=== PATIENT | male | born 2000 | race Caucasian/White ===

== ENCOUNTER 2020-02-10 15:59 | Inpatient (IN) ==
[2020-02-10 18:58] LABS: Basophils % 0.3 % (0.0-0.8); Eosinophils # 0.1 10*3/uL (0.0-0.87); Eosinophils % 0.8 % (0.00-10.9); Hematocrit 38.4 VOL% (42.0-52.0); Hemoglobin 12.5 GM/DL (14.0-18.0); Immature Granulocytes % 0.3 %; Immature Granulocytes Absolute 0.04 #; Lymphocytes % 8.1 % (21.2-54.2); Mean Corpuscular HGB Conc 32.6 GM/DL (32-36); Mean Corpuscular Volume 87.7 FL (87-102); Mean Platelet Volume 10.6 FL (9.6-12.0); Monocytes % 12.1 % (1.7-12.7); Neutrophils % 78.4 % (38.7-73.9); Platelet Count 194 T/CUMM (130-400); Red Blood Count 4.38 MC/CUMM (3.8-5.5); Red Cell Distribution Width 14.5 % (9.3-17.3); White Blood Count 11.9 T/CUMM (4-12)
[2020-02-10 19:19] LABS: Albumin 3.1 G/DL (3.4-5.0); Bilirubin,Total 0.7 MG/DL (0.2-1.0); Calcium 8.8 MG/DL (8.5-10.1); Osmolality,Calculated 274.5 MOS/KG (273-304)
[2020-02-10] MEDS: GABAPENTIN 100 MG CAPSULE PO SCH (21:19)
[2020-02-10] MEDS: SERTRALINE 50 MG TABLET PO SCH (21:19)
[2020-02-10] MEDS: CLINDAMYCIN INJ 600 MG in PREMIX 1 EACH IV SCH (21:23)
[2020-02-10] MEDS ORDERED: DEXTROSE 10% 250 ML BAG IV PRN (21:35)
[2020-02-10] MEDS ORDERED: GLUCAGON 1 MG VIAL IM PRN (21:35)
[2020-02-10] MEDS ORDERED: MORPHINE 10 MG/5 ML UDCUP PO PRN (21:40)
[2020-02-10] MEDS: DEXTROSE 5% NACL 0.45% 1,000 ML IV SCH (23:30)
[2020-02-10] MEDS: HYDROmorphone 2 MG/1 ML VIAL IV PRN (23:30)
[2020-02-11] MEDS: VANCOMYCIN INJ 1,000 MG in SODIUM CHLORIDE 0.9% 250 ML IV SCH ×3 (00:04→22:47)
[2020-02-11] MEDS: CLINDAMYCIN INJ 600 MG in PREMIX 1 EACH IV SCH ×3 (04:11→19:43)
[2020-02-11 07:43] LABS: Basophils % 0.2 % (0.0-0.8); Eosinophils # 0.1 10*3/uL (0.0-0.87); Eosinophils % 0.6 % (0.00-10.9); Hematocrit 39.4 VOL% (42.0-52.0); Hemoglobin 12.7 GM/DL (14.0-18.0); Immature Granulocytes % 0.5 %; Immature Granulocytes Absolute 0.06 #; Lymphocytes % 7.9 % (21.2-54.2); Mean Corpuscular HGB Conc 32.2 GM/DL (32-36); Mean Corpuscular Volume 87.8 FL (87-102); Monocytes % 11.6 % (1.7-12.7); Neutrophils % 79.2 % (38.7-73.9); Platelet Count 233 T/CUMM (130-400); Red Blood Count 4.49 MC/CUMM (3.8-5.5); Red Cell Distribution Width 14.7 % (9.3-17.3); White Blood Count 12.7 T/CUMM (4-12)
[2020-02-11 08:36] LABS: Calcium 8.8 MG/DL (8.5-10.1)
[2020-02-11 08:37] LABS: Osmolality,Calculated 271.7 MOS/KG (273-304)
[2020-02-11] MEDS: GABAPENTIN 100 MG CAPSULE PO SCH ×2 (09:29→20:14)
[2020-02-11] MEDS: DEXTROSE 5% NACL 0.45% 1,000 ML IV SCH ×2 (09:35→17:53)
[2020-02-11] MEDS: HYDROmorphone 2 MG/1 ML VIAL IV PRN (12:00)
[2020-02-11] MEDS: CHLORHEXIDINE 0.12% ORAL RINSE 60 ML BOTTLE SWISH/SPIT SCH ×2 (14:43→22:48)
[2020-02-11] MEDS ORDERED: CHLORHEXIDINE 0.12% ORAL RINSE 60 ML BOTTLE SWISH/SPIT ONE (14:59)
[2020-02-11] MEDS ORDERED: LIDOCAINE 1%/EPI INJ 20 ML VIAL ONE (14:59)
[2020-02-11 17:01] LABS: Apearance,Urine Slightly Hazy (Clear); Bacteria,Urine Occasional /HPF (Few); Bilirubin,Urine Negative (Negative); Blood, Urine Negative (Negative); Glucose,Urine (UA) Negative (Negative); Ketones,Urine 80 mg/dL (Negative); Mucus,Urine Occasional /LPF (Occasional); Nitrite,Urine Negative (Negative); Protein,Urine 30 MG/DL; RBC,Urine 4 /HPF (0-4); Urine Color Amber (Yellow); Urine Specific Gravity 1.024 (1.001-1.035); WBC,Urine 1 /HPF (0-6)
[2020-02-11] MEDS ORDERED: propofoL 200 MG/20 ML VIAL IV ONE (17:27)
[2020-02-11] MEDS ORDERED: LIDOCAINE 2% 5 ML VIAL ONE (17:27)
[2020-02-11] MEDS ORDERED: SEVOFLURANE 1 UNIT/15 MINUTE INH ONE (17:27)
[2020-02-11] MEDS ORDERED: MIDAZOLAM 2 MG/2 ML VIAL ONE (17:28)
[2020-02-11] MEDS ORDERED: MIDAZOLAM 10 MG/2 ML VIAL ONE (17:28)
[2020-02-11] MEDS ORDERED: fentaNYL 100 MCG/2 ML VIAL ONE (17:28)
[2020-02-11] MEDS ORDERED: fentaNYL 250 MCG/5 ML VIAL ONE (17:28)
[2020-02-11] MEDS ORDERED: ROCURONIUM 100 MG/10 ML VIAL IV ONE (17:29)
[2020-02-11] MEDS ORDERED: DEXAMETHASONE 4 MG/1 ML VIAL ONE (17:29)
[2020-02-11] MEDS ORDERED: LACTATED RINGERS 1,000 ML IV ONE (17:29)
[2020-02-11] MEDS ORDERED: PHENYLEPHRINE 1 MG/10 ML SYRINGE IV ONE (17:29)
[2020-02-11] MEDS ORDERED: ONDANSETRON 4 MG/2 ML VIAL ONE (17:29)
[2020-02-11 17:47] LABS: ABG Base Excess 2.6 MMOL/L (-2.5-2.5); ABG HCO3 26.7 MMOL/L (20-26); ABG Oxygen Saturation 99.9 % (95-100); ABG PCO2 32.7 MM HG (35-48); ABG PH 7.497 (7.35-7.45); ABG TCO2 22.2 MMOL/L (23-27); Allen Test Positive; Pt O2 Delivery Device Ventilator
[2020-02-11] MEDS ORDERED: fentaNYL INJ 1,250 MCG in SODIUM CHLORIDE 0.9% 225 ML IV PRN (19:00)
[2020-02-11] MEDS: SERTRALINE 50 MG TABLET PO SCH (20:14)
[2020-02-12] MEDS: DEXTROSE 5% NACL 0.45% 1,000 ML IV SCH ×2 (03:58→15:33)
[2020-02-12 04:33] LABS: ABG Base Excess 3.4 MMOL/L (-2.5-2.5); ABG HCO3 27.5 MMOL/L (20-26); ABG Oxygen Saturation 99.4 % (95-100); ABG PCO2 47.5 MM HG (35-48); ABG PH 7.396 (7.35-7.45); ABG TCO2 25.5 MMOL/L (23-27)
[2020-02-12] MEDS: CLINDAMYCIN INJ 600 MG in PREMIX 1 EACH IV SCH ×3 (05:16→22:32)
[2020-02-12 06:27] LABS: Basophils % 0.2 % (0.0-0.8); Hematocrit 37.1 VOL% (42.0-52.0); Hemoglobin 12.1 GM/DL (14.0-18.0); Immature Granulocytes % 0.4 %; Immature Granulocytes Absolute 0.05 #; Lymphocytes # 0.7 10*3/uL (1.4-4.0); Lymphocytes % 5.4 % (21.2-54.2); Mean Corpuscular HGB Conc 32.6 GM/DL (32-36); Mean Corpuscular Volume 86.9 FL (87-102); Mean Platelet Volume 10.6 FL (9.6-12.0); Monocytes % 6.1 % (1.7-12.7); Neutrophils % 87.9 % (38.7-73.9); Platelet Count 280 T/CUMM (130-400); Red Blood Count 4.27 MC/CUMM (3.8-5.5); White Blood Count 12.7 T/CUMM (4-12)
[2020-02-12] MEDS: HYDROmorphone 2 MG/1 ML VIAL IV PRN ×3 (07:43→22:53)
[2020-02-12] MEDS: CHLORHEXIDINE 0.12% ORAL RINSE 60 ML BOTTLE SWISH/SPIT SCH ×2 (08:50→22:32)
[2020-02-12] MEDS ORDERED: DEXAMETHASONE 10 MG/1 ML VIAL IV ONE (08:51)
[2020-02-12] MEDS: VANCOMYCIN INJ 1,000 MG in SODIUM CHLORIDE 0.9% 250 ML IV SCH ×2 (10:25→23:30)
[2020-02-12] MEDS: GABAPENTIN 100 MG CAPSULE PO SCH ×2 (12:01→22:32)
[2020-02-12] MEDS ORDERED: hydrOXYzine HCL 2 MG/ML 30 ML/BOTTLE PO ONE (17:13)
[2020-02-12] MEDS: SERTRALINE 50 MG TABLET PO SCH (22:32)
[2020-02-13] MEDS: DEXTROSE 5% NACL 0.45% 1,000 ML IV SCH ×2 (01:33→10:13)
[2020-02-13] MEDS: CLINDAMYCIN INJ 600 MG in PREMIX 1 EACH IV SCH ×3 (04:08→19:50)
[2020-02-13] MEDS: HYDROmorphone 2 MG/1 ML VIAL IV PRN ×3 (06:31→17:09)
[2020-02-13] MEDS: VANCOMYCIN INJ 1,500 MG in SODIUM CHLORIDE 0.9% 500 ML IV SCH ×2 (08:43→19:53)
[2020-02-13] MEDS: GABAPENTIN 100 MG CAPSULE PO SCH ×2 (08:44→20:56)
[2020-02-13] MEDS: CHLORHEXIDINE 0.12% ORAL RINSE 60 ML BOTTLE SWISH/SPIT SCH ×2 (08:44→20:57)
[2020-02-13 09:00] LABS: Basophils % 0.3 % (0.0-0.8); Eosinophils % 0.1 % (0.00-10.9); Hematocrit 38.7 VOL% (42.0-52.0); Hemoglobin 12.5 GM/DL (14.0-18.0); Immature Granulocytes % 0.6 %; Immature Granulocytes Absolute 0.09 #; Lymphocytes # 2.2 10*3/uL (1.4-4.0); Lymphocytes % 15.3 % (21.2-54.2); Mean Corpuscular HGB Conc 32.3 GM/DL (32-36); Mean Corpuscular Volume 86.8 FL (87-102); Mean Platelet Volume 9.9 FL (9.6-12.0); Monocytes % 8.6 % (1.7-12.7); Neutrophils % 75.1 % (38.7-73.9); Platelet Count 328 T/CUMM (130-400); Red Blood Count 4.46 MC/CUMM (3.8-5.5); Red Cell Distribution Width 15.1 % (9.3-17.3); White Blood Count 14.4 T/CUMM (4-12)
[2020-02-13 09:29] LABS: Calcium 8.4 MG/DL (8.5-10.1); Osmolality,Calculated 279.3 MOS/KG (273-304)
[2020-02-13 09:58] LABS: Band Neutrophils 5 % (0-10); Lymphocytes 20 % (20-55); Platelet Estimate Normal; Segmented Neutrophils 67 % (50-85); Total Cells Counted 100
[2020-02-13] MEDS ORDERED: DEXAMETHASONE 10 MG/1 ML VIAL IV ONE (11:01)
[2020-02-13] MEDS: DEXT 5% NACL 0.45% KCL 20 MEQ 20 MEQ/1,000 ML BAG IV SCH ×3 (11:59→19:54)
[2020-02-13] MEDS: SERTRALINE 50 MG TABLET PO SCH (20:56)
[2020-02-13] MEDS: HYDROcod/ACETAMIN 7.5-325 MG/15 ML UDCUP PO PRN (21:22)
[2020-02-14 03:30] LABS: Basophils % 0.3 % (0.0-0.8); Eosinophils % 0.1 % (0.00-10.9); Hematocrit 37.5 VOL% (42.0-52.0); Hemoglobin 12.4 GM/DL (14.0-18.0); Immature Granulocytes % 0.9 %; Immature Granulocytes Absolute 0.11 #; Lymphocytes # 1.9 10*3/uL (1.4-4.0); Lymphocytes % 16.3 % (21.2-54.2); Mean Corpuscular HGB Conc 33.1 GM/DL (32-36); Mean Corpuscular Volume 85.2 FL (87-102); Mean Platelet Volume 10.1 FL (9.6-12.0); Neutrophils % 72.4 % (38.7-73.9); Platelet Count 353 T/CUMM (130-400); Red Cell Distribution Width 14.9 % (9.3-17.3); White Blood Count 11.7 T/CUMM (4-12)
[2020-02-14 03:43] LABS: Calcium 8.1 MG/DL (8.5-10.1); Osmolality,Calculated 276.4 MOS/KG (273-304)
[2020-02-14] MEDS: HYDROcod/ACETAMIN 7.5-325 MG/15 ML UDCUP PO PRN ×4 (04:12→22:27)
[2020-02-14] MEDS: DEXT 5% NACL 0.45% KCL 20 MEQ 20 MEQ/1,000 ML BAG IV SCH ×3 (04:17→20:07)
[2020-02-14] MEDS: CLINDAMYCIN INJ 600 MG in PREMIX 1 EACH IV SCH ×3 (04:18→20:01)
[2020-02-14] MEDS: GABAPENTIN 100 MG CAPSULE PO SCH ×2 (08:18→20:15)
[2020-02-14] MEDS: VANCOMYCIN INJ 1,500 MG in SODIUM CHLORIDE 0.9% 500 ML IV SCH ×2 (08:20→19:59)
[2020-02-14] MEDS: CHLORHEXIDINE 0.12% ORAL RINSE 60 ML BOTTLE SWISH/SPIT SCH ×2 (09:06→20:16)
[2020-02-14] MEDS: SERTRALINE 50 MG TABLET PO SCH (20:16)
[2020-02-15] MEDS: HYDROcod/ACETAMIN 7.5-325 MG/15 ML UDCUP PO PRN ×3 (03:58→23:02)
[2020-02-15] MEDS: CLINDAMYCIN INJ 600 MG in PREMIX 1 EACH IV SCH ×3 (05:09→23:24)
[2020-02-15] MEDS: VANCOMYCIN INJ 1,500 MG in SODIUM CHLORIDE 0.9% 500 ML IV SCH ×3 (05:10→23:53)
[2020-02-15] MEDS: DEXT 5% NACL 0.45% KCL 20 MEQ 20 MEQ/1,000 ML BAG IV SCH ×2 (05:10→12:08)
[2020-02-15] MEDS: GABAPENTIN 100 MG CAPSULE PO SCH ×2 (08:29→23:25)
[2020-02-15] MEDS: CHLORHEXIDINE 0.12% ORAL RINSE 60 ML BOTTLE SWISH/SPIT SCH ×2 (09:30→23:25)
[2020-02-15 09:48] LABS: Basophils # 0.1 10*3/uL (0.0-0.2); Basophils % 0.8 % (0.0-0.8); Eosinophils # 0.2 10*3/uL (0.0-0.87); Eosinophils % 1.6 % (0.00-10.9); Hematocrit 40.2 VOL% (42.0-52.0); Hemoglobin 13.5 GM/DL (14.0-18.0); Immature Granulocytes % 1.2 %; Immature Granulocytes Absolute 0.13 #; Lymphocytes # 2.9 10*3/uL (1.4-4.0); Lymphocytes % 27.5 % (21.2-54.2); Mean Corpuscular HGB Conc 33.6 GM/DL (32-36); Mean Corpuscular Volume 84.5 FL (87-102); Mean Platelet Volume 9.8 FL (9.6-12.0); Monocytes % 11.4 % (1.7-12.7); Neutrophils % 57.5 % (38.7-73.9); Platelet Count 412 T/CUMM (130-400); Red Blood Count 4.76 MC/CUMM (3.8-5.5); Red Cell Distribution Width 14.9 % (9.3-17.3); White Blood Count 10.6 T/CUMM (4-12)
[2020-02-15 10:10] LABS: Band Neutrophils 1 % (0-10); Eosinophils 1 % (0-10); Hypochromasia 1+; Lymphocytes 27 % (20-55); Platelet Estimate Adequate; Segmented Neutrophils 58 % (50-85); Total Cells Counted 100
[2020-02-15 10:11] LABS: Atypical Lymphocytes Few
[2020-02-15 10:13] LABS: Calcium 8.5 MG/DL (8.5-10.1); Osmolality,Calculated 273.5 MOS/KG (273-304)
[2020-02-15] MEDS: SERTRALINE 50 MG TABLET PO SCH (23:25)
[2020-02-16] MEDS: DEXT 5% NACL 0.45% KCL 20 MEQ 20 MEQ/1,000 ML BAG IV SCH ×3 (04:48→13:05)
[2020-02-16] MEDS: CLINDAMYCIN INJ 600 MG in PREMIX 1 EACH IV SCH ×2 (04:52→13:05)
[2020-02-16] MEDS: HYDROcod/ACETAMIN 7.5-325 MG/15 ML UDCUP PO PRN (04:53)
[2020-02-16] MEDS: VANCOMYCIN INJ 1,500 MG in SODIUM CHLORIDE 0.9% 500 ML IV SCH (05:39)
[2020-02-16 06:35] LABS: Basophils # 0.1 10*3/uL (0.0-0.2); Basophils % 0.8 % (0.0-0.8); Eosinophils # 0.2 10*3/uL (0.0-0.87); Eosinophils % 2.3 % (0.00-10.9); Hematocrit 43.5 VOL% (42.0-52.0); Hemoglobin 14.4 GM/DL (14.0-18.0); Immature Granulocytes % 1.3 %; Immature Granulocytes Absolute 0.12 #; Lymphocytes # 2.4 10*3/uL (1.4-4.0); Lymphocytes % 25.2 % (21.2-54.2); Mean Corpuscular HGB Conc 33.1 GM/DL (32-36); Mean Corpuscular Volume 85.6 FL (87-102); Mean Platelet Volume 10.2 FL (9.6-12.0); Monocytes % 9.1 % (1.7-12.7); Neutrophils % 61.3 % (38.7-73.9); Platelet Count 453 T/CUMM (130-400); Red Blood Count 5.08 MC/CUMM (3.8-5.5); Red Cell Distribution Width 15.1 % (9.3-17.3); White Blood Count 9.5 T/CUMM (4-12)
[2020-02-16] MEDS: GABAPENTIN 100 MG CAPSULE PO SCH (09:19)
[2020-02-16] MEDS: CHLORHEXIDINE 0.12% ORAL RINSE 60 ML BOTTLE SWISH/SPIT SCH (09:19)
[2020-02-16 13:12] VITALS: BP 124/68
[2020-02-16 17:43] LABS: Calcium 9.6 MG/DL (8.5-10.1); Osmolality,Calculated 272.5 MOS/KG (273-304)
== END 2020-02-16 13:05 | disposition home or self-care (01) | DRG 158 ==
LOC: SUATTDRO 17:38 → N.TELEN 17:38 → N.ICU 02-11 16:43 → N.3E 02-15 10:13
PROVIDERS: ADMIT Internal Medicine; ATTEND Internal Medicine